=== PATIENT | male | born 1930 | race Two or more races ===

== ENCOUNTER 2017-05-17 23:08 | Inpatient (IN) | payer MEDICAID, MEDICARE ==
[~2017-05-17] VITALS: Ht 149.9 cm; Wt 77.1 kg
[2017-05-17] MEDS ORDERED: IV NS 0.9% 1,000 ML BAG IV ONE (23:30)
[2017-05-17] MEDS ORDERED: PANTOPRAZOLE 80 MG in IV NS 0.9% 100 ML IV ONE (23:30)
--- NOTE | 2017-05-17 23:35 | NUR ---
ANABELLA started, labs drawn & sent.
[2017-05-17] MEDS ORDERED: IV SET PRIMARY 1 EA INFUS.SET MC ONE (23:51)
[2017-05-17] MEDS ORDERED: IV NS 0.9% 100 ML IV ONE (23:51)
[2017-05-17] MEDS ORDERED: PANTOPRAZOLE 40 MG VIAL ONE (23:51)
[2017-05-17] MEDS ORDERED: IV NS 0.9% 1,000 ML ONE (23:51)
[2017-05-17] MEDS ORDERED: IV SET PRIMARY PUMP SET 1 EA INFUS.SET MC ONE (23:52)
[2017-05-17 23:59] LABS: BASOPHILS # (AUTO) 0.1 /CMM (0.0-0.2); BASOPHILS % (AUTO) 0.5 % (0.0-2.0); EOSINOPHILS % (AUTO) 0.1 % (0.0-6.0); HEMATOCRIT 35 % (39-51); HEMOGLOBIN 11.6 g/dL (13.5-17.5); LYMPHOCYTES # (AUTO) 1.1 /CMM (0.8-4.8); LYMPHOCYTES % (AUTO) 7.9 % (20.0-44.0); MEAN CORPUSCULAR HEMOGLOBIN 32 PG (26.0-33.0); MEAN CORPUSCULAR HGB CONC 34 g/dl (31.0-36.0); MEAN CORPUSCULAR VOLUME 96 fL (80-96); MONOCYTES # (AUTO) 0.3 /CMM (0.1-1.30); MONOCYTES % (AUTO) 1.9 % (2.0-12.0); NEUTROPHILS # (AUTO) 12.9 /CMM (1.8-8.9); NEUTROPHILS % (AUTO) 89.6 % (43.0-81.0); PLATELET COUNT (AUTO) 225 /CMM (150-450); RDW COEFFICIENT OF VARIATION 12.9 (11.5-15.0); RED BLOOD CELL COUNT(AUTO) 3.63 MIL/uL (4.5-6.0); WHITE BLOOD COUNT (AUTO) 14.4 K/uL (4.3-11.0)
--- NOTE | 2017-05-18 00:03 | NUR ---
Dr. Jaeger at bedside for update on pt status.
[2017-05-18 00:06] LABS: CALCIUM, SERUM 7.8 mg/dL (8.5-10.1); CARBON DIOXIDE 28 mmol/L (21-32); CHLORIDE 110 mmol/L (98-107); CREATININE 1.2 mg/dL (0.6-1.3); GLUCOSE 260 mg/dL (74-106); POTASSIUM 4.2 mmol/L (3.5-5.1); SODIUM SERUM 144 mmol/L (136-145); UREA NITROGEN, BLOOD 45 mg/dL (7-18)
[2017-05-18 00:13] LABS: ALANINE AMINOTRANSFERASE 21 U/L (12-78); ALBUMIN 2.4 g/dL (3.4-5.0); ALKALINE PHOSPHATASE 37 U/L (46-116); ASPARTATE AMINOTRANSFERASE 13 U/L (15-37); BILIRUBIN,DIRECT 0.1 mg/dL (0.0-0.2); BILIRUBIN,TOTAL 0.6 mg/dL (0.2-1.0); LIPASE 179 U/L (73-393); TROPONIN I < 0.017 ng/mL (0.00-0.056)
[2017-05-18 00:17] LABS: INR 1.17 (0.87-1.13); PROTHROMBIN TIME 12.7 SECS (9.5-12.7)
--- NOTE | 2017-05-18 00:39 | NUR ---
ambulatory w/ steady gait to restroom, resp even & unlabored, no acute distress noted.
[2017-05-18] MEDS ORDERED: CT SWABBABLE VALVE TRANS SET 1 EA INFUS.SET MC ONE (01:56)
[2017-05-18] MEDS ORDERED: IV NS 0.9% 250 ML IV ONE (01:56)
[2017-05-18] MEDS ORDERED: IOHEXOL-300 100 ML VIAL IV ONE (01:56)
--- NOTE | 2017-05-18 01:57 | NUR ---
pt sent to CT.
--- NOTE | 2017-05-18 02:23 | NUR ---
pt back fr CT, resp even & unlabored, no acute distress. Family continue to be at bedside.
--- NOTE | 2017-05-18 03:18 | NUR ---
pt ambulatory w/ steady gait to restroom, resp even & unlabored, no acute distress noted.
[2017-05-18] MEDS ORDERED: ONDANSETRON HCL/PF 4 MG/2 ML VIAL IVP PRN (03:30)
[2017-05-18] MEDS ORDERED: MAG HYDROX/AL HYDROX/SIMETH 30 ML UDC PO PRN (03:30)
[2017-05-18] MEDS ORDERED: ACETAMINOPHEN 325 MG TABLET PO PRN (03:30)
[2017-05-18] MEDS ORDERED: HYDROCODONE/APAP 5/325MG 1 EACH TABLET PO PRN (03:30)
[2017-05-18] MEDS ORDERED: MAGNESIUM HYDROXIDE 30 ML UDC PO PRN (03:30)
[2017-05-18] MEDS ORDERED: Z GUARD REMEDY 2 OZ OINT TP PRN (03:30)
--- NOTE | 2017-05-18 03:45 | NUR ---
antwan burris took report for jimena
[2017-05-18 03:48] LABS: HEMATOCRIT 32 % (39-51); HEMOGLOBIN 10.6 g/dL (13.5-17.5); MEAN CORPUSCULAR HEMOGLOBIN 32 PG (26.0-33.0); MEAN CORPUSCULAR HGB CONC 33 g/dl (31.0-36.0); MEAN CORPUSCULAR VOLUME 96 fL (80-96); PLATELET COUNT (AUTO) 205 /CMM (150-450); RED BLOOD CELL COUNT(AUTO) 3.33 MIL/uL (4.5-6.0); WHITE BLOOD COUNT (AUTO) 17.5 K/uL (4.3-11.0)
--- NOTE | 2017-05-18 03:59 | NUR ---
CYTOPATHOLOGIST INITIAL NOTES PT ARRIVED TO THE FLOOR VIA [facility]. WAS ABLE TO AMBULATE FROM GURNEY TO THE BED WITH THE USE OF A CANE AND ONE PERSON ASSIST. PT IS ALERT AND ORIENTED X3, DJIBOUTIAN SPEAKING WITH DAUGHTER AT BEDSIDE. NO COMPLAINTS OF PAIN. NO SOB. IN NO APPARENT DISTRESS AT THIS TIME. IV ACCESS ON LEFT FOREARM #18 WITH NS AT 75 ML/HR. CT OF ABDOMEN SHOWED CHOLELITHIASIS. TELE MONITOR SHOWS SR AT 62. WILL CONTINUE TO MONITOR PT
[2017-05-18] MEDS ORDERED: IV D5/ 0.9% NACL 1,000 ML IV ONE ×2 (04:30→04:36)
[2017-05-18] MEDS ORDERED: IV SET PRIMARY PUMP SET 1 EA INFUS.SET MC ONE (04:30)
[2017-05-18] MEDS ORDERED: IV 1/2NS 1000 ML 1,000 ML IV ONE (04:35)
[2017-05-18] MEDS: IV NS 0.9% 1,000 ML IV PRN ×2 (04:37→23:44)
[2017-05-18] MEDS ORDERED: IV NS 0.9% 1,000 ML ONE (04:41)
[2017-05-18 05:15] VITALS: BP 123/68
--- NOTE | 2017-05-18 06:22 | NUR ---
[facility] CLOSING NOTES PT IS IN BED RESTING. NO APPARAENT SIGNS OF DISTRESS AT THIS TIME. DAUGHTER AT BEDSIDE. IV FLUIDS RUNNING AT 75 ML/HR ON LEFT AC #18. TELE MONITOR SHOWS SR 62. PT GIVEN A TOILET HAT TO USE TO MONITOR STOOL. BED IS IN LOW LOCKED POSITION, CALL LIGHT WITHIN REACH. WILL ENDORSE TO DAY SHIFT.
[2017-05-18 06:53] VITALS: BP 117/60
--- NOTE | 2017-05-18 07:50 | NUR ---
MS RN RECEIVED ON BED, AWAKE,ALERT,ORIENTED X4, NOT IN ANY FORM OF DISTRESS,RESPIRATIONS EVEN AND UNLABORED, NO SOB NOTED, LUNGS ARE CLEAR,ABDOMEN SOFT,POSITIVE BOWEL SOUNDS,PONCE PAIN AT THIS TIME, WILL MONITOR PATIENT'S CONDITION.
--- NOTE | 2017-05-18 09:00 | NUR ---
MS ACEVEDO BREAKFAST SERVED,DUE MEDS GIVEN,TOLERATED WELL.
[2017-05-18] MEDS: PANTOPRAZOLE 40 MG VIAL IV SCH (09:26)
[2017-05-18] MEDS ORDERED: GEMF600T3 PO (10:52)
[2017-05-18] MEDS ORDERED: VALS160T2 PO (10:52)
[2017-05-18] MEDS ORDERED: ASPI-991 PO (10:52)
[2017-05-18] MEDS ORDERED: AMLO5TAB2 PO (10:52)
[2017-05-18] MEDS ORDERED: TRAM50TA2 PO (10:52)
[2017-05-18] MEDS ORDERED: SIMV40TA5 PO (10:52)
[2017-05-18] MEDS ORDERED: CALC-20 PO (10:52)
[2017-05-18] MEDS ORDERED: MULT1TAB73 PO (10:52)
--- NOTE | 2017-05-18 14:00 | NUR ---
MS RN WAS SEEN BY DR. PIPO Leone/ ORDERS MADE AND CARRIED OUT.
[2017-05-18 14:24] LABS: BASOPHILS % (AUTO) 0.1 % (0.0-2.0); EOSINOPHILS % (AUTO) 0.1 % (0.0-6.0); HEMATOCRIT 30 % (39-51); HEMOGLOBIN 9.8 g/dL (13.5-17.5); LYMPHOCYTES # (AUTO) 3.3 /CMM (0.8-4.8); LYMPHOCYTES % (AUTO) 18.9 % (20.0-44.0); MEAN CORPUSCULAR HEMOGLOBIN 32 PG (26.0-33.0); MEAN CORPUSCULAR HGB CONC 33 g/dl (31.0-36.0); MEAN CORPUSCULAR VOLUME 96 fL (80-96); MONOCYTES # (AUTO) 0.9 /CMM (0.1-1.30); MONOCYTES % (AUTO) 5.3 % (2.0-12.0); NEUTROPHILS # (AUTO) 13.2 /CMM (1.8-8.9); NEUTROPHILS % (AUTO) 75.6 % (43.0-81.0); PLATELET COUNT (AUTO) 192 /CMM (150-450); RDW COEFFICIENT OF VARIATION 13.9 (11.5-15.0); RED BLOOD CELL COUNT(AUTO) 3.08 MIL/uL (4.5-6.0); WHITE BLOOD COUNT (AUTO) 17.5 K/uL (4.3-11.0)
[2017-05-18 14:45] LABS: IRON, SERUM 97 ug/dl (50-175); TOTAL IRON BINDING CAPACITY 201 ug/dl (250-450)
[2017-05-18 14:48] LABS: ALANINE AMINOTRANSFERASE 21 U/L (12-78); ALBUMIN 2.4 g/dL (3.4-5.0); ALKALINE PHOSPHATASE 31 U/L (46-116); ASPARTATE AMINOTRANSFERASE 12 U/L (15-37); BILIRUBIN,DIRECT 0.1 mg/dL (0.0-0.2); BILIRUBIN,TOTAL 0.5 mg/dL (0.2-1.0); CALCIUM, SERUM 7.6 mg/dL (8.5-10.1); CARBON DIOXIDE 29 mmol/L (21-32); CHLORIDE 113 mmol/L (98-107); CREATININE 0.6 mg/dL (0.6-1.3); GLUCOSE 107 mg/dL (74-106); POTASSIUM 3.6 mmol/L (3.5-5.1); SODIUM SERUM 146 mmol/L (136-145); TOTAL PROTEIN, SERUM 4.8 g/dL (6.4-8.2); UREA NITROGEN, BLOOD 28 mg/dL (7-18)
[2017-05-18 16:00] VITALS: BP 114/51
--- NOTE | 2017-05-18 19:10 | NUR ---
MS RN NOTES RECEIVED PT IN BED, AWAKE. A/O X 3. TONGAN SPEAKING. FAMILY MEMBERS AT BEDSIDE. NO DISTRESS, NO SOB AT THIS TIME. RESPIRATION IS EVEN AND UNLABORED./ IV SITE ON LAC INTACT AND PATENT, WITH NO S.S OF INFILTRATION NOTED. IVF INFUSING WELL. DENIES ANY PAIN OR DISCOMFORT AT THIS TIME. ALL NEEDS ATTENDED. SAFETY PRECAUTIONS OBSERVED. CALL LIGHT WITHIN REACH. WILL CONT TO MONITOR.
[2017-05-18] MEDS: TRAMADOL HCL 50 MG TABLET PO SCH (19:19)
[2017-05-18 20:00] VITALS: BP 129/59
[2017-05-18 22:00] VITALS: BP 129/59
--- NOTE | 2017-05-18 22:20 | NUR ---
PLACED A CALL TO DR. DALTON, AND RELAYED LAB RESULTS AND ALSO INFORMED HIM THAT THE PT IS STILL HAVING BLOOD CLOTS. PT'S VITAL SIGNS: BP : 95/53 , HR : 79, O2 SAT : 98 %, MD WITH NNO AT THIS TIME
--- NOTE | 2017-05-18 22:20 | NUR ---
INFORMED DR. DALTON THAT PATIENT'S FAMILY WANTS TO TALK TO HIM. PT'S LATEST HGB : 9.8
--- NOTE | 2017-05-18 22:25 | NUR ---
KANDI SMITH AT BEDSIDE TALKING TO THE FAMILY AND PATIENT. ALSO EXAMINED THE PT AND DISCUSSED WITH PT AND FAMILY RE: PLAN OF CARE.
[2017-05-18] MEDS ORDERED: CIPROFLOXACIN IV RTU 400 MG in PREMIX 1 EA IV SCH (22:30)
[2017-05-18] MEDS ORDERED: PEG 3350/NA SULF,BICARB,CL/KCL 4,000 ML BOTTLE PO ONE (22:30)
[2017-05-18] MEDS ORDERED: SECONDARY IV SET 1 EA INFUS.SET MC ONE (23:36)
[2017-05-18] MEDS ORDERED: PEG 3350/NA SULF,BICARB,CL/KCL 4,000 ML BOTTLE ONE (23:47)
[2017-05-18] MEDS ORDERED: METRONIDAZOLE 500MG/ NS 100ML 100 ML IV ONE (23:48)
[2017-05-18] MEDS ORDERED: CIPROFLOXACIN IV RTU 200 ML IV ONE (23:49)
[2017-05-19] VITALS (14 sets, daily range): BP systolic 103–120; BP diastolic 53–79
[2017-05-19] MEDS: METRONIDAZOLE 500MG/ NS 100ML 500 MG in PREMIX 1 EA IV SCH ×2 (00:06→06:44)
[2017-05-19] MEDS ORDERED: PEG 3350/NA SULF,BICARB,CL/KCL 4,000 ML BOTTLE PO ONE ×2 (01:00→12:35)
--- NOTE | 2017-05-19 01:00 | NUR ---
MS RN NOTES UNABLE TO SCAN GOLYTELY, ORDER IS IN BUT NOT IN THE eMAR, CLARIFIED ORDER WITH MD BUT STILL, GOLYTELY DOESN'T APPEAR IN THE eMAR, CHARGE NURSE CURTIS BOWENS AWARE AND INFORMED. FAMILY AT BEDSIDE. STARTED PT ON GOLYTELY, CHARGE NURSE GOGO AWARE. EXPLAINED MEDICATION USE TO THE PT AND FAMILY, VERBALIZED UNDERSTANDING. WILL CONT TO MONITOR.
[2017-05-19 01:43] LABS: BASOPHILS % (AUTO) 0.1 % (0.0-2.0); EOSINOPHILS # (AUTO) 0.1 /CMM (0.0-0.7); EOSINOPHILS % (AUTO) 0.4 % (0.0-6.0); HEMATOCRIT 22 % (39-51); HEMOGLOBIN 7.3 g/dL (13.5-17.5); LYMPHOCYTES # (AUTO) 3.1 /CMM (0.8-4.8); LYMPHOCYTES % (AUTO) 18.1 % (20.0-44.0); MEAN CORPUSCULAR HEMOGLOBIN 32 PG (26.0-33.0); MEAN CORPUSCULAR HGB CONC 34 g/dl (31.0-36.0); MEAN CORPUSCULAR VOLUME 95 fL (80-96); MONOCYTES # (AUTO) 1.2 /CMM (0.1-1.30); NEUTROPHILS # (AUTO) 12.8 /CMM (1.8-8.9); NEUTROPHILS % (AUTO) 74.4 % (43.0-81.0); PLATELET COUNT (AUTO) 148 /CMM (150-450); RDW COEFFICIENT OF VARIATION 13.6 (11.5-15.0); RED BLOOD CELL COUNT(AUTO) 2.28 MIL/uL (4.5-6.0); WHITE BLOOD COUNT (AUTO) 17.1 K/uL (4.3-11.0)
--- NOTE | 2017-05-19 01:45 | NUR ---
PLACED A CALL TO DR. DALTON AND RELAYED HGB : 7.3, HCT : 72, PLATELET : 148, WITH N.O NOTED AND CARRIED OUT.
[2017-05-19] MEDS ORDERED: IV NS 0.9% 250 ML IV ONE (02:10)
[2017-05-19] MEDS ORDERED: BLOOD IV SET 1 EA INFUS.SET MC ONE (02:10)
--- NOTE | 2017-05-19 03:13 | NUR ---
STARTED BLOOD TRANSFUSION , VERIFIED WITH CURTIS REGALADO
--- NOTE | 2017-05-19 03:30 | NUR ---
BLOOD TRANSFUSION ONGOING WITH NO A/R NOTED. PT IS STABLE. FAMILY AT BED SIDE.
--- NOTE | 2017-05-19 06:16 | NUR ---
BLOOD TRANSFUSION COMPLETED , WITH NO A/R NOTED. PT NATHALIE WELL. PT STABLE. NO DISTRESS, WILL ENDORSE TO NEXT SHIFT. FAMILY AT BED SIDE.
[2017-05-19] MEDS ORDERED: METRONIDAZOLE 500MG/ NS 100ML 100 ML IV ONE (06:27)
--- NOTE | 2017-05-19 07:04 | NUR ---
MS RN NOTES PT IN BED, AWAKE. A/O X 3. GHANAIAN SPEAKING. FAMILY MEMBERS AT BEDSIDE. NO DISTRESS, NO SOB AT THIS TIME. RESPIRATION IS EVEN AND UNLABORED./ IV SITE ON LAC INTACT AND PATENT, WITH NO S.S OF INFILTRATION NOTED. IVF INFUSING WELL. DENIES ANY PAIN OR DISCOMFORT AT THIS TIME. ALL NEEDS ATTENDED. SAFETY PRECAUTIONS OBSERVED. CALL LIGHT WITHIN REACH. WILL ENDORSE TO NEXT SHIFT FOR DIOGENES.
--- NOTE | 2017-05-19 07:05 | NUR ---
ENDORSED PT ACCORDINGLY TO CURTIS VEGA
[2017-05-19 07:29] LABS: BASOPHILS % (AUTO) 0.2 % (0.0-2.0); EOSINOPHILS # (AUTO) 0.3 /CMM (0.0-0.7); EOSINOPHILS % (AUTO) 1.8 % (0.0-6.0); HEMATOCRIT 30 % (39-51); HEMOGLOBIN 10.1 g/dL (13.5-17.5); LYMPHOCYTES # (AUTO) 5.3 /CMM (0.8-4.8); LYMPHOCYTES % (AUTO) 29.2 % (20.0-44.0); MEAN CORPUSCULAR HEMOGLOBIN 32 PG (26.0-33.0); MEAN CORPUSCULAR HGB CONC 34 g/dl (31.0-36.0); MEAN CORPUSCULAR VOLUME 94 fL (80-96); MONOCYTES % (AUTO) 5.2 % (2.0-12.0); NEUTROPHILS # (AUTO) 11.6 /CMM (1.8-8.9); NEUTROPHILS % (AUTO) 63.6 % (43.0-81.0); PLATELET COUNT (AUTO) 157 /CMM (150-450); RDW COEFFICIENT OF VARIATION 13.6 (11.5-15.0); RED BLOOD CELL COUNT(AUTO) 3.14 MIL/uL (4.5-6.0); WHITE BLOOD COUNT (AUTO) 18.3 K/uL (4.3-11.0)
--- NOTE | 2017-05-19 07:45 | NUR ---
MS RN NOTES RECEIVED REPORT WITH PT IN BED. PATIENT IS A/OX4. NO S/S OF DISTRESS NOTED. NO SOB NOTED. PATIENT CONTINUING TO DRINK GO LYTELY. IV IS PATENT AND INTACT. CALL LIGHT IS WITHIN REACH. BED IS IN LOWEST, LOCKED POSITION. WILL CONTINUE TO MONITOR THROUGHOUT SHIFT.
[2017-05-19 07:47] LABS: CHOLESTEROL 127 mg/dL (<200); HDL CHOLESTEROL 25 mg/dL (40-60); LDL 43 mg/dL (0-99); TRIGLYCERIDES 346 mg/dL (30-150)
[2017-05-19 08:01] LABS: CALCIUM, SERUM 7.4 mg/dL (8.5-10.1); CARBON DIOXIDE 28 mmol/L (21-32); CHLORIDE 111 mmol/L (98-107); CREATININE 0.7 mg/dL (0.6-1.3); GLUCOSE 96 mg/dL (74-106); POTASSIUM 4.2 mmol/L (3.5-5.1); SODIUM SERUM 146 mmol/L (136-145); UREA NITROGEN, BLOOD 29 mg/dL (7-18)
--- NOTE | 2017-05-19 08:13 | NUR ---
STARTED BLOOD TRANSFUSION VERIFIED WITH CURTIS REGALADO Addendum: 05/19/17 at 0815 by GRETCHEN BAPTISTE RN INCORRECT TIME
[2017-05-19] MEDS ORDERED: METRONIDAZOLE 500MG/ NS 100ML 500 MG in PREMIX 1 EA IV SCH ×2 (08:23→13:00)
[2017-05-19] MEDS ORDERED: CIPROFLOXACIN IV RTU 400 MG in PREMIX 1 EA IV SCH ×2 (08:29→09:00)
[2017-05-19] MEDS: TRAMADOL HCL 50 MG TABLET PO SCH ×2 (09:00→17:00)
[2017-05-19] MEDS: SIMVASTATIN 40 MG TABLET PO SCH (09:16)
[2017-05-19] MEDS: PANTOPRAZOLE 40 MG VIAL IV SCH (09:16)
[2017-05-19] MEDS ORDERED: SECONDARY IV SET 1 EA INFUS.SET MC ONE (09:18)
[2017-05-19 14:53] LABS: BASOPHILS % (AUTO) 0.3 % (0.0-2.0); EOSINOPHILS # (AUTO) 0.2 /CMM (0.0-0.7); EOSINOPHILS % (AUTO) 1.3 % (0.0-6.0); HEMATOCRIT 26 % (39-51); HEMOGLOBIN 8.7 g/dL (13.5-17.5); LYMPHOCYTES # (AUTO) 3.6 /CMM (0.8-4.8); LYMPHOCYTES % (AUTO) 21.8 % (20.0-44.0); MEAN CORPUSCULAR HEMOGLOBIN 32 PG (26.0-33.0); MEAN CORPUSCULAR HGB CONC 34 g/dl (31.0-36.0); MEAN CORPUSCULAR VOLUME 94 fL (80-96); MONOCYTES # (AUTO) 0.9 /CMM (0.1-1.30); MONOCYTES % (AUTO) 5.8 % (2.0-12.0); NEUTROPHILS # (AUTO) 11.6 /CMM (1.8-8.9); NEUTROPHILS % (AUTO) 70.8 % (43.0-81.0); PLATELET COUNT (AUTO) 139 /CMM (150-450); RDW COEFFICIENT OF VARIATION 14.3 (11.5-15.0); RED BLOOD CELL COUNT(AUTO) 2.72 MIL/uL (4.5-6.0); WHITE BLOOD COUNT (AUTO) 16.3 K/uL (4.3-11.0)
--- NOTE | 2017-05-19 19:10 | NUR ---
MS RN NOTES PATIENT IS IN STABLE CONDITION. PATIENT IS A/OX4. VITAL SIGNS STABLE. NO S/S OF DISTRESS NOTED. NO SOB NOTED. IV IS PATENT AND INTACT. ALL PATIENT NEEDS HAVE BEEN MET THROUGHOUT THE DAY. PATIENT RETURNED FROM COLONOSCOPY AND EATING DINNER. PATIENT TOLERATING THE FOOD WELL. NO PAIN NOTED. NO S/S OF DISTRESS NOTED. FAMILY AT BEDSIDE. CALL LIGHT IS WITHIN REACH. BED IS IN LOWEST, LOCKED POSITION. WILL ENDORSE CARE TO PM SHIFT.
--- NOTE | 2017-05-19 19:15 | NUR ---
MS RN NOTES RECEIVED PT SITTING UP IN A CHAIR, AWAKE, A/O X 3. [place] SPEAKING. NO DISTRESS, NO SOB NOTED. RESPIRATION IS EVEN AND UNLABORED. FAMILY MEMBERS AT BEDSIDE. IV SITE ON LAC INTACT AND PATENT, NO S/S OF INFILTRATION NOTED. IVF INFUSING WELL. DENIES ANY PAIN OR DISCOMFORT AT THIS TIME. ALL NEEDS ATTENDED AND MET. KEPT COMFORTABLE. CALL LIGHT WITHIN REACH. WILL CONT TO MONITOR.
[2017-05-20 02:16] LABS: BASOPHILS # (AUTO) 0.1 /CMM (0.0-0.2); BASOPHILS % (AUTO) 0.5 % (0.0-2.0); EOSINOPHILS # (AUTO) 0.4 /CMM (0.0-0.7); EOSINOPHILS % (AUTO) 3.1 % (0.0-6.0); HEMATOCRIT 24 % (39-51); LYMPHOCYTES # (AUTO) 3.4 /CMM (0.8-4.8); LYMPHOCYTES % (AUTO) 28.2 % (20.0-44.0); MEAN CORPUSCULAR HEMOGLOBIN 32 PG (26.0-33.0); MEAN CORPUSCULAR HGB CONC 34 g/dl (31.0-36.0); MEAN CORPUSCULAR VOLUME 94 fL (80-96); MONOCYTES # (AUTO) 0.8 /CMM (0.1-1.30); MONOCYTES % (AUTO) 6.5 % (2.0-12.0); NEUTROPHILS # (AUTO) 7.5 /CMM (1.8-8.9); NEUTROPHILS % (AUTO) 61.7 % (43.0-81.0); PLATELET COUNT (AUTO) 134 /CMM (150-450); RDW COEFFICIENT OF VARIATION 14.5 (11.5-15.0); RED BLOOD CELL COUNT(AUTO) 2.51 MIL/uL (4.5-6.0); WHITE BLOOD COUNT (AUTO) 12.1 K/uL (4.3-11.0)
[2017-05-20] MEDS: IV NS 0.9% 1,000 ML IV PRN (03:45)
--- NOTE | 2017-05-20 06:30 | NUR ---
MS RN NOTES PT IN BED, RESTING COMFORTABLY AT THIS TIME, AROUSES EASILY. A/O X 3. LUXEMBOURGISH SPEAKING. DAUGHTER AT BEDSIDE. NO DISTRESS, NO SOB NOTED. RESPIRATION IS EVEN AND UNLABORED. IV SITE ON LAC INTACT AND PATENT, NO S/S OF INFILTRATION NOTED. IVF INFUSING WELL. ON REGULAR DIET NATHALIE WELL. NO C/O ANY PAIN OR DISCOMFORT AT THIS TIME. ALL NEEDS ATTENDED AND MET. KEPT COMFORTABLE. CALL LIGHT WITHIN REACH. WILL ENDORSE TO NEXT SHIFT FOR DIOGENES.
--- NOTE | 2017-05-20 07:30 | NUR ---
MS RN NOTES RECEIVED REPORT WITH PATIENT RESTING IN BED. PATIENT IS A/OX4. BOLIVIAN SPEAKING. NO S/S OF DISTRESS NOTED. NO S/S OF SOB NOTED. IV IS PATENT AND INTACT. BED IS IN LOWEST, LOCKED POSITION. FAMILY MEMBER AT BEDSIDE. CALL LIGHT IS WITHIN REACH. WILL CONTINUE TO MONITOR THROUGHOUT SHIFT.
[2017-05-20] MEDS: TRAMADOL HCL 50 MG TABLET PO SCH (09:00)
[2017-05-20] MEDS: SIMVASTATIN 40 MG TABLET PO SCH (09:20)
[2017-05-20] MEDS: PANTOPRAZOLE 40 MG VIAL IV SCH (09:20)
--- NOTE | 2017-05-20 14:00 | NUR ---
MS RN NOTES PATIENT DISCHARGED IN STABLE CONDITION. PATIENT IS A/OX4. NO S/S OF DISTRESS NOTED. NO SOB NOTED. PATIENT DENIES ANY PAIN OR DISCOMFORT. DISCHARGE PROTOCOL FOLLOWED. DISCHARGE INSTRUCTIONS HAVE BEEN PROVIDED TO THE PATIENT. INFORMED PATIENT TO SEE PCP WITHIN 1 WEEK. IV AND ID BANDS REMOVED. PROVIDED VERBAL EDUCATION TO PATIENT WELL HANDOUTS IN GU[place] SINCE PATIENT ONLY SPEAKS AND UNDERSTANDS GU[place]. ALL PATIENT NEEDS HAVE BEEN MET. PATIENT ESCORTED DOWNSTAIRS IN STABLE CONDITION WITH DAUGHTER AND GRANDDAUGHTER.
== END 2017-05-20 13:55 | disposition home or self-care (01) | DRG 254 ==
LOC: ER 23:09 → TELE 05-18 03:24 → MED 05-18 09:09
PROVIDERS: ADMIT Internal Medicine; ATTEND Internal Medicine
PROC: 30233N1 Transfusion of Nonautologous Red Blood Cells into Peripheral Vein, Percutaneous Approach (ICD-10-PCS; principal; 2017-05-19 18:07)
PROC: 0DBL8ZZ Excision of Transverse Colon, Via Natural or Artificial Opening Endoscopic (ICD-10-PCS; principal; 2017-05-19 18:07)
PROC: 0DBN8ZZ Excision of Sigmoid Colon, Via Natural or Artificial Opening Endoscopic (ICD-10-PCS; principal; 2017-05-19 18:07)
DX: K63.5 Polyp of colon (principal); E44.0 Moderate protein-calorie malnutrition; D64.9 Anemia, unspecified; D72.829 Elevated white blood cell count, unspecified; E66.9 Obesity, unspecified; K21.9 Gastro-esophageal reflux disease without esophagitis; Z85.46 Personal history of malignant neoplasm of prostate; K80.20 Calculus of gallbladder without cholecystitis without obstruction; K52.9 Noninfective gastroenteritis and colitis, unspecified; K64.8 Other hemorrhoids; M17.9 Osteoarthritis of knee, unspecified; M06.9 Rheumatoid arthritis, unspecified; Z68.34 Body mass index [BMI] 34.0-34.9, adult
CPT/HCPCS: 36415; 71010-TC; 80048-TC; 80061-TC; 80076-TC; 83540-TC; 83690-TC; 83735-TC; 84100-TC; 84443-TC; 84484-TC; 85025-TC; 85027-TC; 85730-TC; 86850-TC; 86921-TC; 87040-TC; 87081-TC; 94799-TC; 97001-TC; A4216; A4606; C9113; J0744; J2405; J2704; J3490; J7030; J7042; J7050; P9016-BL; Q9967; Z7610